=== PATIENT | female | born 1965 | race Caucasian/White ===

== ENCOUNTER 2020-08-21 15:48 | Emergency (ER) | payer MEDICARE ==
[~2020-08-21 15:48] MED LIST: 3IN1 COMMODE; ASPIRIN EC81 MG PO; AUGMENTIN250 MG PO; COLACE100 MG PO; FLEXERIL10 MG PO; GABAPENTIN800 MG PO; GLUCOPHAGE850 MG PO; HUMULIN R100 UNIT/1 SC; IRON325 M1 PO; LASIX20 MG PO; MORPHINE 15MG E15 MG PO; MORPHINE IR IR; MORPHINE SULFAT15 MG PO; MORPHINE SULFAT30 M5 PO; MS CONTIN15 MG PO; MS CONTIN30 MG PO; NEURONTIN400 MG PO; NORCO 5-325 TA1 EACH PO; PLAVIX75 MG PO; PRAVACHOL20 MG PO; REGLAN10 MG PO; SYNTHROID125 MCG PO; TENS 5021 EACH TD; TRESIBA FL100 UNIT/1 SC; ULTRAM50 MG PO; VITAMIN D50000 UNIT PO; VOLTAREN100 GM TOP; ZANAFLEX2 MG PO; ZOFRAN4 MG PO
[2020-08-21 16:38] LABS: BILIRUBIN 2+ mg/dL (NEGATIVE); BLOOD NEGATIVE Ery/uL (NEGATIVE); CLARITY HAZY (CLEAR); COLOR YELLOW (YELLOW); GLUCOSE (U) NORMAL (NORMAL); LEUKOCYTES TRACE Leu/uL (NEGATIVE); NITRITE NEGATIVE (NEGATIVE); PROTEIN 3+ mg/dL (NEGATIVE); SPECIFIC GRAVITY >=1.030 (1.001-1.030)
[2020-08-21 16:41] LABS: BASOPHIL 0.5 % (0-2); EOSINOPHIL 11.8 % (0-5); HGB 12.7 g/dl (12.5-16.0); LYMPHOCYTE 33.4 % (15-48); MCH 30.3 pg (25.0-31.0); MCHC 32.6 g/dL (32.0-36.0); MCV 93.1 fL (78.0-100.0); MONOCYTE 8.3 % (0-12); MPV 11.3 fL (6.0-9.5); NEUTROPHIL 45.6 % (41-80); NRBC 0; PLT 276 K/uL (150-400); RBC 4.19 M/uL (4.20-5.40); RDW 12.7 % (11.5-14.0)
[2020-08-21 16:43] LABS: BACTERIA TRACE; MUCOUS MODERATE; SQUAMOUS EPITHELIAL CELLS 20-50; URINARY WBC RARE
[2020-08-21 16:57] LABS: BUN/CREAT RATIO (CALC) 17.4 RATIO; CREATININE 1.61 mg/dL (0.51-0.95); POTASSIUM 4.4 mmol/L (3.5-5.1)
[2020-08-21] MEDS ORDERED: MORPHINE SULFAT15 MG PO (17:51)
== END 2020-08-21 17:28 | disposition home or self-care (01) ==
LOC: FER 15:48
PROVIDERS: Emergency Medicine
DX: I95.9 Hypotension, unspecified (principal); E86.9 Volume depletion, unspecified; R94.31 Abnormal electrocardiogram [ECG] [EKG]; I25.2 Old myocardial infarction; F17.200 Nicotine dependence, unspecified, uncomplicated; Z86.73 Personal history of transient ischemic attack (TIA), and cerebral infarction without residual deficits; Z88.8 Allergy status to other drugs, medicaments and biological substances; Z95.1 Presence of aortocoronary bypass graft; Z90.49 Acquired absence of other specified parts of digestive tract; Z91.048 Other nonmedicinal substance allergy status
CPT/HCPCS: 36415; 80048; 81001; 84484; 85025; 93005

== ENCOUNTER 2020-09-13 09:15 | Emergency (ER) | payer MEDICARE ==
[2020-09-13 09:46] LABS: BASOPHIL 0.4 % (0-2); EOSINOPHIL 18.5 % (0-5); HCT 43.1 % (37.0-47.0); HGB 14.3 g/dl (12.5-16.0); LYMPHOCYTE 29.2 % (15-48); MCH 30.2 pg (25.0-31.0); MCHC 33.2 g/dL (32.0-36.0); MCV 90.9 fL (78.0-100.0); MONOCYTE 6.7 % (0-12); MPV 11.3 fL (6.0-9.5); NEUTROPHIL 44.9 % (41-80); PLT 299 K/uL (150-400); RBC 4.74 M/uL (4.20-5.40); RDW 12.8 % (11.5-14.0); WBC 20.1 K/uL (4.0-10.5)
[2020-09-13 09:55] LABS: NRBC 0
[2020-09-13 09:58] LABS: INR 0.98 (0.9-1.2); PROTHROMBIN TIME 12.3 SECONDS (11.4-13.6); PTT 24.7 SECONDS (22.2-34.7)
[2020-09-13 10:06] LABS: BILIRUBIN - TOTAL 0.3 mg/dL (0.2-1.0); BUN/CREAT RATIO (CALC) 30.5 RATIO; CREATININE 1.05 mg/dL (0.51-0.95); GLOBULIN (CALCULATION) 4.2 g/dL; POTASSIUM 3.6 mmol/L (3.5-5.1); TOTAL PROTEIN 7.2 g/dL (6.4-8.2)
[2020-09-13 12:08] LABS: CORONAVIRUS 2019 SARS-COV-2 NEGATIVE (NEGATIVE); INFLUENZA A NAA NEGATIVE (NEGATIVE)
[2020-09-13 12:20] LABS: LACTIC ACID 2.4 mmol/L (0.4-1.9)
[2020-09-13 12:29] LABS: AMPHETAMINES NEGATIVE (NEGATIVE); BARBITURATES NEGATIVE (NEGATIVE); ECSTASY (MDMA) NEGATIVE (NEGATIVE); MARIJUANA (THC) NEGATIVE (NEGATIVE); METHADONE NEGATIVE (NEGATIVE); OPIATES POSITIVE (NEGATIVE); OXYCODONE NEGATIVE (NEGATIVE)
[2020-09-13 12:30] LABS: BILIRUBIN NEGATIVE (NEGATIVE); BLOOD 2+ Ery/uL (NEGATIVE); CLARITY CLEAR (CLEAR); COLOR YELLOW (YELLOW); GLUCOSE (U) 1+ mg/dL (NORMAL); LEUKOCYTES NEGATIVE Leu/uL (NEGATIVE); NITRITE NEGATIVE (NEGATIVE); PROTEIN 3+ mg/dL (NEGATIVE); SPECIFIC GRAVITY >=1.030 (1.001-1.030); UROBILINOGEN 0.2 mg/dL (0.2-1.0)
[2020-09-13 12:37] LABS: AMORPHOUS URATES CRYSTALS TRACE; BACTERIA 2+
[2020-09-13 12:40] LABS: ACETAMINOPHEN (TYLENOL) < 2.0 ug/mL (10.0-30.0)
== END 2020-09-13 17:12 | disposition other institution (70) ==
LOC: FER 09:15
PROVIDERS: Emergency Medicine
DX: I63.9 Cerebral infarction, unspecified (principal); R74.02 Elevation of levels of lactic acid dehydrogenase [LDH]; R09.02 Hypoxemia; F19.90 Other psychoactive substance use, unspecified, uncomplicated; F17.210 Nicotine dependence, cigarettes, uncomplicated; Z20.822 Contact with and (suspected) exposure to COVID-19
CPT/HCPCS: 36415; 36600; 70450; 70551; 71045; 71275; 80053; 80305; 81001; 82550; 82803; 83605; 84484; 85025; 85610; 85730; 87040; 93005; G0480; J2270; J2310; J2405; J2543; J7040; Q9967; U0002